=== PATIENT | female | born 1980 | race Caucasian/White ===

== ENCOUNTER 2018-08-12 05:56 | Inpatient (IN) | payer MEDICAID ==
[~2018-08-12] VITALS: Ht 170.2 cm; Wt 95.0 kg
[2018-08-13 18:00] VITALS: BP 111/66; PULSE 61; RESP 18
[2018-08-13] MEDS ORDERED: MISOPROSTOL 200 MCG TAB PR PRN ×2 (18:30→20:30)
[2018-08-13] MEDS ORDERED: OXYTOCIN 30 UNITS/LR 500 ML IV PRN (18:30)
[2018-08-13] MEDS ORDERED: OXYTOCIN 30 UNITS/LR 500 ML IV SCH (18:30)
[2018-08-13] MEDS ORDERED: METHYLERGONOVINE 0.2 MG INJ IM PRN (18:30)
[2018-08-13] MEDS ORDERED: CARBOPROST 250 MCG INJ IM PRN (18:30)
[2018-08-13] MEDS ORDERED: CEFAZOLIN 2 GM/50 ML (PMX) 50 ML IVPB SCH (18:30)
[2018-08-13 18:32] VITALS: Ht 170.2 cm; Wt 95.0 kg
[2018-08-13] MEDS: LACTATED RINGER'S 1,000 ML IV SCH (18:35)
--- NOTE | 2018-08-13 18:55 | PREAC ---
Date/Time of Note Date/Time of Note DATE: 08/13/18 TIME: 18:53 Anesthesia Eval and Record Evaluation Time Pre-Procedure Interview DATE: 08/13/18 TIME: 18:53 Age 37 Sex female NPO: 8 hrs Preoperative diagnosis intrauterine Planned procedure repeat c section Past Medical History Past Medical History: Includes : : (4), Para: (3), Gestational age: (39.1) Surgery & Anesthesia Issues No known issue Meds Anticoagulation: No Beta Marie within 24 hr: No Reason Beta Marie not given: Pt. not on B-Marie Current Medications Lactated Ringer's 1,000 ml @ 125 mls/hr Q8H IV Last administered on 08/13/18at 18:35; Admin Dose 125 MLS/HR; Start 08/13/18 at 18:10 Cefazolin Sodium/ Dextrose 50 ml @ 100 mls/hr ONCE IVPB ; Start 08/13/18 at 18:30 Oxytocin/Lactated Ringer's 500 ml @ 125 mls/hr POST IV ; Start 08/13/18 at 18:30 Oxytocin/Lactated Ringer's 500 ml @ 0 mls/hr ONCE PRN IV VAGINAL BLEEDING; Start 08/13/18 at 18:30 Methylergonovine Maleate (Methergine) 0.2 mg ONCE PRN IM VAGINAL BLEEDING; Start 08/13/18 at 18:30 Carboprost Tromethamine (Hemabate) 250 mcg ONCE PRN IM VAGINAL BLEEDING; Start 08/13/18 at 18:30 Misoprostol (Cytotec) 1,000 mcg ONCE PRN LA VAGINAL BLEEDING; Start 08/13/18 at 18:30 Meds reviewed: Yes Allergies Coded Allergies: No Known Allergy (Unverified , 08/13/18) Allergies Reviewed: Yes Labs/Studies Labs Reviewed: Reviewed by anesthesiologist test: N/A Pre-procedure Exam Last vitals Vital Signs Date Temp Pulse Resp B/P (MAP) Pulse Ox O2 O2 Flow FiO2 Time Delivery Rate 08/13/18 97.9 61 18 111/66 Room Air 18:00 (81) Airway: Adequate mouth opening, Adequate thyromental dist Mallampati: Mallampati II Teeth: Normal Lung: Normal Heart: Normal ASA Physical Status ASA physical status: 2 Emergency: None Planned Anesthetic Neuraxial: Spinal Planned Pain Management Sub-arachniod narcotics, Parenteral pain med Pre-operative Attestations Prior to commencing anesthesia and surgery, the patient was re-evaluated, there was verification of: *The patient's identity *The results of appropriate recent lab work and preoperative vital signs *The above evaluation not changing prior to induction *Anesthetic plan, risk benefits, alternative and complications discussed with patient/family; questions answered; patient/family understands, accepts and wishes to proceed. JASON ALVAREZ MD Aug 13, 2018 18:55
[2018-08-13] MEDS ORDERED: LACTATED RINGER'S 1,000 ML IV ONE (19:06)
[2018-08-13] MEDS ORDERED: ONDANSETRON 4 MG INJ ONE ×2 (19:23→20:17)
[2018-08-13] MEDS ORDERED: FAMOTIDINE 20 MG INJ IV ONE (19:30)
[2018-08-13] MEDS ORDERED: CITRIC ACID/NA CITRATE 30 ML CUP PO ONE (19:30)
[2018-08-13] MEDS ORDERED: METOCLOPRAMIDE 10 MG INJ IV ONE (19:30)
[2018-08-13] MEDS ORDERED: morphine SULFATE/PF (10 MG/10 ML) INJ ONE (20:06)
[2018-08-13] MEDS ORDERED: LACTATED RINGER'S 1,000 ML IV SCH (20:11)
--- NOTE | 2018-08-13 20:11 | HP ---
Date/Time of Note Date/Time of Note DATE: 08/13/18 TIME: 20:08 OB - History Hx of Present Free Text/Dictation 37 YO G$ P3 with history of previous delivery x 3 with IUP at 39.1 weeks and EDC 08/19/2018, who desires to have repeat delivery and Permanent sterilization. I discussed with the patient the risks, benefits, indications, and alternatives of procedure including but not limited to risks of infection, bleeding, damage to other organs, bowel, bladder, hernia formation, scar formation, possibility of blood transfusion, possible need for emergency hysterectomy, as well as the fact that tubal ligation may fail and there is 1 to 2% risk of failure over lifetime of tubal ligations and the fact that tubal ligation is permanent and irreversible. She was allowed to ask questions. All her questions were answered. Informed consent has been obtained. Care: Good Care Ultrasounds: Normal mid trimester US Obstetrical Complications: None Medical Complications: None Past Family/Social History * Past Medical, Surgical, Family and Obstetric Histories reviewed from chart. OB Admission Exam Vital Signs Vital Signs Vital Signs Date Temp Pulse Resp B/P (MAP) Pulse Ox O2 O2 Flow FiO2 Time Delivery Rate 08/13/18 97.9 61 18 111/66 Room Air 18:00 (81) Physical Exam HEENT: WNL Heart: Rhythm Normal Lungs: Clear, Equal Abdomen: WNL Extremities: Normal Reflexes: Normal Last 72 hours Lab Results CBC & BMP 08/13/18 18:30 OB Assessment/Plan Reason for admission: section Other Assessment: Assessment: IUP 39 weeks h/o previous x 3 Desires repeat Desires permanent sterilization Plan: Section Other plan: Plan: Repeat Delivery Tubal ligation may be done by either salpingectomy or modified Marlena BTL KRISTEN TAYLOR MD Aug 13, 2018 20:11
[2018-08-13] MEDS ORDERED: PHENYLephrine (100 MCG/ML) 10ML SYG ONE (20:15)
[2018-08-13] MEDS ORDERED: ONDANSETRON 4 MG INJ IV PRN ×2 (20:30→22:00)
[2018-08-13] MEDS ORDERED: NA PHOSPHATE/BIPHOS 133 ML ENEMA PR PRN (20:30)
[2018-08-13] MEDS ORDERED: MEPERIDINE 25 MG INJ IV PRN (20:30)
[2018-08-13] MEDS ORDERED: LANOLIN HPA 1 PKT TOP PRN (20:30)
[2018-08-13] MEDS ORDERED: PROCHLORPERAZINE 10 MG INJ IV PRN (20:30)
[2018-08-13] MEDS ORDERED: KETOROLAC 30 MG INJ IV PRN (20:30)
[2018-08-13] MEDS ORDERED: DIPHENHYDRAMINE 50 MG INJ IV PRN ×2 (20:30→22:00)
[2018-08-13] MEDS ORDERED: HYDROmorphONE 1 MG/5 ML IV SYRINGE IV PRN ×3 (20:30)
[2018-08-13] MEDS ORDERED: EPHEDrine SULFATE 50 MG/5 ML SYG IV PRN (20:30)
[2018-08-13] MEDS ORDERED: OXYCODONE/ACETAMINOPHEN (5/325) TAB PO PRN ×2 (20:30)
[2018-08-13] MEDS ORDERED: FENTAnyl 50 MCG/ML VIAL IV PRN ×3 (20:30)
[2018-08-13] MEDS ORDERED: OXYTOCIN 30 UNITS/LR 500 ML IV ONE (20:53)
--- NOTE | 2018-08-13 21:24 | PAC ---
Date/Time of Note Date/Time of Note DATE: 08/13/18 TIME: 21:23 Post-Anesthesia Notes Post-Anesthesia Note Last documented vital signs Vital Signs Date Temp Pulse Resp B/P (MAP) Pulse Ox O2 O2 Flow FiO2 Time Delivery Rate 08/13/18 97.9 61 18 111/66 Room Air 18:00 (81) Activity: WNL Respiratory function: WNL Cardiovascular function: WNL Mental status: Baseline Pain reasonably controlled: Yes Hydration appropriate: Yes Nausea/Vomiting absent: Yes Comments BP: 115/69 HR: 65 RR: 15 T: 97.8 SaO2: 100% JASON ALVAREZ MD Aug 13, 2018 21:24
--- NOTE | 2018-08-13 21:36 | OPR ---
Date/Time of Note Date/Time of Note DATE: 08/13/18 TIME: 21:32 Operative Report Procedure Date: Aug 13, 2018 Preoperative Diagnosis 1. Term , history of previous delivery: 2. Desires repeat delivery. 3. Desires permanent sterilization Postoperative Diagnosis 1. Term , history of previous delivery: 2. Desires repeat delivery. 3. Desires permanent sterilization Operation/Procedure Performed Repeat delivery Bilateral distal salpingectomy Surgeon Destiny Almodovar MD [employer] Dr. MS GIL Anesthesia Type: spinal Estimated Blood Loss: other (700) Transfusion none Specimen tubal segments Grafts/Implants none Tubes/Drains dodd cath Complications none Pt Condition Post Procedure: stable Disposition: PACU Procedure Description COMPLICATIONS: None. The risks, benefits, indications, alternatives of procedure including, but not limited to risk of infection, bleeding, damage to other organs, bowel, bladder, hernia formation, scar formation, possibility of blood transfusions, the risks of tubal ligation such as failure and future pregnancies were discussed with the patient. The fact that BTL is permanent and irreversible also discussed with patient. She was allowed to ask questions. All her questions were answered. Informed consent was obtained. DESCRIPTION OF PROCEDURE: She was taken to the operating room. Spinal anesthesia was induced. She was prepped and draped in the usual sterile fashion. Surgical time out one. Anesthesia was tested to be adequate. With permission from anesthesiologist, a knife was used to make a Pfannenstiel skin incision. The incision was taken down in layers. The fascia was cut, undermined and from the underlying muscle using sharp and blunt dissection. All the bleeders were cauterized. Peritoneum was entered bluntly. A low transverse incision was developed over the uterus. Amniotic fluid was clear and adequate. A viable infant in vertex presentation was delivered without any difficulty. Th e cord was clamped and cut, handed to awaiting team. Placenta was then delivered. Uterus was exteriorized, wrapped around a moist lap. Inside uterus was cleaned using a dry lap. All residual membranes were removed. The uterine incision was then closed using #1 Monocryl in 2 layers. A 5 cm distal end of the right tube was ligated 3 times using 0 plain tie and the ligated portion was cut, sent to pathology. Same procedure was done on the contralateral side. The uterus was inserted back inside the abdominal cavity. Irrigation was done carefully. Careful evaluation of the uterine incision revealed no further bleeding. The tubal ligation sites were evaluated carefully. There was no bleeding. The peritoneum and rectus muscles and fascia were evaluated. All bleeders cauterized. Peritoneum was closed using 2-0 Monocryl. At this time, the count was correct. Rectus muscle was reapproximated using 2-0 Monocryl. Rectus fascia was closed using #1 Vicryl. Subcutaneous tissue was cleaned and irrigated. All bleeders cauterized and the skin closed using Insorb. All counts correct. DESTINY ALMODOVAR MD Aug 13, 2018 21:36
[2018-08-13] MEDS ORDERED: HYDROmorphONE 0.5 MG/0.5 ML SYG IV PRN ×2 (22:00)
[2018-08-13] MEDS ORDERED: ZOLPIDEM 5 MG TAB PO PRN (22:00)
[2018-08-13] MEDS ORDERED: NALOXONE (0.4 MG/ML) INJ IV PRN (22:00)
[2018-08-14 00:30] VITALS: BP 110/70; PULSE 61; RESP 18
[2018-08-14] MEDS: SENNA/DOCUSATE NA (8.6MG/50MG) TAB PO SCH ×3 (00:30→21:29)
[2018-08-14] MEDS: LACTATED RINGER'S 1,000 ML IV SCH ×3 (01:57→16:47)
[2018-08-14 04:00] VITALS: BP 105/55; PULSE 64; RESP 16
--- NOTE | 2018-08-14 06:22 | NUR ---
EOSS: PT RECEIVED FROM LD AT 0030, V/S STABLE AND WNL, NO C/O PAIN AFTER TRANSFERRED TO THIS FLOOR, BREAST FED BABY AND BONDING WELL WITH BABY
[2018-08-14 08:00] VITALS: BP 95/53; PULSE 65; RESP 18
--- NOTE | 2018-08-14 10:30 | NUR ---
Pericare done,then assisted patient to get up and sat in the chair and she tolerate it well.
[2018-08-14] MEDS: KETOROLAC 30 MG INJ IV PRN ×2 (10:48→17:46)
[2018-08-14 12:00] VITALS: BP 94/50; PULSE 63; RESP 18
[2018-08-14 15:39] VITALS: BP 100/55; PULSE 69
--- NOTE | 2018-08-14 17:52 | NUR ---
Eoss:With minimal vaginal bleeding,bonding well with baby,vital signs stable.
[2018-08-14] MEDS: IBUPROFEN 600 MG TAB PO SCH (18:00)
[2018-08-14 20:00] VITALS: BP 100/59; PULSE 73; RESP 19
[2018-08-15] MEDS: IBUPROFEN 600 MG TAB PO SCH ×3 (00:12→12:00)
[2018-08-15 04:05] VITALS: BP 97/52; PULSE 66; RESP 17
--- NOTE | 2018-08-15 04:33 | NUR ---
EOSS: REMAIN STABLE. VOIDED WELL. LOCHIA MINIMAL. BONDING WELL WITH BABY.
--- NOTE | 2018-08-15 07:57 | PN ---
Date/Time of Note Date/Time of Note DATE: 08/15/18 TIME: 07:51 OB Subjective Subjective Subjective Late entry note. Patient seen on 08/14/2018 POD#1 Patient is doing well. She denies nausea, vomiting, shortness of breath, chest pain, headache. She has been ambulating without difficulty, tolerating regular diet. Pain is well controlled on current medications OB Objective Objective Objective VS - Last 72 Hours, by Label Date Temp Pulse Resp B/P (MAP) Pulse Ox O2 O2 Flow FiO2 Time Delivery Rate 08/15/18 98.7 66 17 97/52 (67) Room Air 04:05 08/14/18 98.7 73 19 100/59 95 Room Air 20:00 (73) 08/14/18 97.9 69 100/55 96 Room Air 15:39 (70) 08/14/18 98.0 63 18 94/50 (65) 97 Room Air 12:00 08/14/18 98.4 65 18 95/53 (67) 96 Room Air 08:00 08/14/18 98.2 64 16 105/55 97 Room Air 04:00 (72) 08/14/18 98.0 61 18 110/70 98 Room Air 00:30 (83) 08/13/18 97.9 61 18 111/66 Room Air 18:00 (81) General: AAO X 3, comfortable, NAD, appropriate mood and affect. Heart: RRR +S1, +S2, no murmurs. Lungs: Clear to auscultation (B/L), no rales, rhonchi or wheezing. ABD: +BS. Soft, non-tender. Uterus 2 cm below umbilicus Incision: Clear, dry, intact. No erythema, drainage or induration. Flank: No CVA tenderness (B/L) LE: Mild edema. No clubbing, cyanosis, thigh or calf tenderness (B/L). Homans 'sign is negative OB Assessment/Plan Other plan: 37-year-old 4 repeat s/p delivery at 39 weeks and 1 day. POD#1 - AF, VSS - Baby is doing well, at bed side. She is bonding well - Continue care - CBC; white BC 9.5, hemoglobin 9.8, platelet 191 HADCHRISTINA BAUTISTA Aug 15, 2018 07:57
--- NOTE | 2018-08-15 08:00 | PN ---
Date/Time of Note Date/Time of Note DATE: 08/15/18 TIME: 07:58 OB Subjective Subjective Subjective POD#2 Patient is doing well. She denies nausea, vomiting, shortness of breath, chest pain, headache. She has been ambulating without difficulty, tolerating regular diet. Pain is well controlled on current medications OB Objective Objective Objective VS - Last 72 Hours, by Label Date Temp Pulse Resp B/P (MAP) Pulse Ox O2 O2 Flow FiO2 Time Delivery Rate 08/15/18 98.7 66 17 97/52 (67) Room Air 04:05 08/14/18 98.7 73 19 100/59 95 Room Air 20:00 (73) 08/14/18 97.9 69 100/55 96 Room Air 15:39 (70) 08/14/18 98.0 63 18 94/50 (65) 97 Room Air 12:00 08/14/18 98.4 65 18 95/53 (67) 96 Room Air 08:00 08/14/18 98.2 64 16 105/55 97 Room Air 04:00 (72) 08/14/18 98.0 61 18 110/70 98 Room Air 00:30 (83) 08/13/18 97.9 61 18 111/66 Room Air 18:00 (81) General: AAO X 3, comfortable, NAD, appropriate mood and affect. ABD: +BS. Soft, non-tender. Uterus 2 cm below umbilicus Incision: Clear, dry, intact. No erythema, drainage or induration. Flank: No CVA tenderness (B/L) LE: Mild edema. No clubbing, cyanosis, thigh or calf tenderness (B/L). Homans 'sign is negative OB Assessment/Plan Other plan: 37-year-old 4 s/p repeat delivery at 39 weeks and 1 day. POD#2 - AF, VSS - Baby is doing well, at bed side. She is bonding well - Continue care - Discharge home - Rx and instruction given - Follow up in one and 6 weeks with CHRISTINA Roque Aug 15, 2018 08:00
[2018-08-15] MEDS: SENNA/DOCUSATE NA (8.6MG/50MG) TAB PO SCH (08:38)
[2018-08-15 10:13] VITALS: BP 108/58; PULSE 55; RESP 18
--- NOTE | 2018-08-15 13:50 | NUR ---
Went home with baby in stable condition accompanied by volunteer via wheelchair.Discharge instructions given to patient.Home care instructions,incission care instructions given and home medications instructions given.All her questions were answered and she verbalizes understanding.
--- NOTE | 2018-08-15 14:00 | DS ---
Date/Time of Note Date/Time of Note DATE: 08/15/18 TIME: 13:59 Obstetrical Discharge Record Final Diagnosis Final Diagnosis: Term delivered Other Final Diagnosis 37-year-old 4 s/p repeat delivery at 39 weeks and 1 day. POD#2 - AF, VSS - Baby is doing well, at bed side. She is bonding well - Continue care - Discharge home - Rx and instruction given - Follow up in one and [address] Almodovar Section Section: Repeat Condition on Discharge Physical Assessment Voiding: Yes Bowel Movement: Yes Breast: Soft, non-tender Fundus: Firm Calf Tenderness: No Patient Condition: Good Copies To: CC: KRISTEN ALMODOVAR MD ; DESHAWN HALEY MD Aug 15, 2018 14:00
[2018-08-16] MEDS ORDERED: MEASLES,MUMPS,RUBELLA VACCINE INJ SC* ONE (09:00)
[2018-08-16] MEDS ORDERED: DIPHTH/TET/ACEL PERTUSS (ADULT) 0.5 ML VIAL IM* ONE (09:00)
--- NOTE | 2018-08-17 14:10 | NSTRPT ---
NST Information Datetime Report Generated by CPN: 08/17/2018 14:09 Datetime: 08/13/2018 23:21 NST Information EGA: 38.2 Datetime: 08/07/2018 08:08 NST Information EGA: 38.2 Test Number: 8 Time on Monitor: 08/07/2018 08:32 Time off Monitor: 08/07/2018 09:16 NST Duration (Min): 44 Reason for NST: Polyhydramnios; Other Reason for NST Other: Advanced Maternal Age Test and Monitor Explained: Monitor Explained; Test Explained; Verbalized Understanding Pulse: 85 Resp: 18 SBP: 90 DBP: 54 Test Evaluation NST Interventions: Reposition Patient Patient States Movement: Present Contraction Frequency: none FHR Baseline : 125 Variability: Moderate 6-25bpm Accelerations: 15X15 Decelerations: None FHR Category: Category I NST Results: Reactive Comments: To u/s. YONG 16.1cm. cephalic. Electronically Signed By E-Signature: with User ID: [id number] Datetime: 08/05/2018 08:17 NST Information EGA: 38.0 NST Duration (Min): 39 Datetime: 07/30/2018 08:09 NST Information EGA: 37.1 NST Duration (Min): 30 Datetime: 07/27/2018 14:33 NST Information EGA: 36.5 NST Duration (Min): 32 Datetime: 07/23/2018 14:51 NST Information EGA: 36.1 NST Duration (Min): 29 Datetime: 07/20/2018 14:31 NST Information EGA: 35.5 NST Duration (Min): 30 Datetime: 07/16/2018 14:39 NST Information EGA: 35.1 NST Duration (Min): 27 Datetime: 07/13/2018 10:48 NST Information EGA: 34.5 Datetime: 07/13/2018 10:18 NST Duration (Min): 3
== END 2018-08-15 13:50 | disposition home or self-care (01) | DRG 785 ==
LOC: EDUNIT# 12:30 → EDBD 12:30 → L-D 08-13 17:21 → PP1 08-14 00:25
PROVIDERS: ADMIT Specialist; ATTEND Specialist
PROC: 0UB70ZZ Excision of Bilateral Fallopian Tubes, Open Approach (ICD-10-PCS; 2018-08-13)
PROC: 10D00Z1 Extraction of Products of Conception, Low, Open Approach (ICD-10-PCS; principal; 2018-08-13 20:00)
DX: O34.219 Maternal care for unspecified type scar from previous cesarean delivery (principal); Z3A.39 39 weeks gestation of pregnancy; Z37.0 Single live birth; Z30.2 Encounter for sterilization
CPT/HCPCS: 85025; 85610; 85730; 86592; 86850; 86900; 86901; 86920; 87340; 88302; 99464; J0690; J1885; J2274; J2370; J2405; J2590; J2765; J7120